=== PATIENT | female | born 1935 | race Two or more races ===

== ENCOUNTER 2023-07-02 20:04 | Inpatient (IN) | payer OTHER ==
[~2023-07-02] VITALS: Ht 167.6 cm; Wt 54.4 kg
[2023-07-02] MEDS ORDERED: METHYLPREDNISOLO4 M1 PO (20:53)
[2023-07-02] MEDS ORDERED: GLIMEPIRIDE4 M1 PO (20:53)
[2023-07-02] MEDS ORDERED: METOPROLOL TAR100 MG PO (20:53)
[2023-07-02] MEDS ORDERED: CEPHALEXIN500 MG PO (20:53)
[2023-07-02] MEDS ORDERED: METHYLPREDNISOLONE SOD SUCC 125 MG VIAL IV ONE (22:15)
[2023-07-02] MEDS ORDERED: IPRATROPIUM BROMIDE 0.5 MG/2.5 ML AMPUL.NEB IH SCH (22:15)
[2023-07-02] MEDS ORDERED: LEVALBUTEROL HCL 1.25 MG/3 ML SOLUTION IH SCH (22:15)
[2023-07-02 22:58] LABS: ABG PH 7.432 (7.35-7.45); ABG PO2 70.5 mmHg (80-100); ABG pCO2 45.3 mmHg (35-45); BASE EXCESS 4.5 mmol/l; BICARBONATE 29.5 mmol/l (23-25); SaO2 94.7 %; Tco2 30.9 mmol/l; allen test SATISFACTORY; o2 21 %; puncture site RADIAL RIGHT
[2023-07-02 23:07] LABS: HEMATOCRIT 36.3 % (36.0-45.00); HEMOGLOBIN 12.2 g/dL (12.0-15.00); MEAN CELL VOLUME 92.1 fL (80.00-100.00); MEAN CORPUSCULAR HGB CONC 33.6 g/dl (32.0-36.0); PLATELET COUNT 226 K/uL (150-450); RED BLOOD COUNT 3.94 M/uL (4.00-6.00); RED CELL DISTRIBUTION WIDTH 15.1 % (11.5-14.5)
[2023-07-02 23:20] LABS: INR 1.09; PARTIAL THROMBOPLASTIN TIME 22.9 SECONDS (22.0-34.0); PROTHROMBIN TIME 11.4 SECONDS (9.0-11.5)
[2023-07-02 23:24] LABS: URINE APPEARANCE Clear; URINE BACTERIA 12.5 uL (0.0-1933); URINE BILIRRUBIN Negative (NEGATIVE); URINE BLOOD Negative; URINE COLOR Yellow; URINE LEUKOCYTE Negative; URINE NITRATE Negative; URINE RBC 6.8 uL (0.0-20.8); URINE WBC 7.8 uL (0.0-23.2)
[2023-07-02 23:26] LABS: ALBUMIN 3.4 gm/dL (3.4-5.0); BILIRUBIN TOTAL 0.56 mg/dL (0.3-1.2); CALCIUM 10.1 mg/dL (8.5-10.1); CREATININE SERUM 0.91 mg/dL (0.55-1.02); GFR 58.61; GLOBULINA 3.1 G/DL (2.4-3.5); POTASSIUM 4.12 mEq/L (3.5-5.1); TOTAL PROTEIN 6.5 gm/dL (6.4-8.2)
[2023-07-02 23:43] LABS: URINE GLUCOSE >=1000 MG/DL (NEGATIVE); URINE PROTEIN 100 (NEGATIVE)
[2023-07-02 23:45] LABS: URINE CRYSTALS FEW /HPF
[2023-07-03] MEDS ORDERED: ALBUTEROL SULFATE 3 ML/2.5 MG AMPUL.NEB IH SCH (05:00)
[2023-07-03] MEDS ORDERED: IPRATROPIUM BROMIDE 0.5 MG/2.5 ML AMPUL.NEB IH SCH (05:00)
[2023-07-03] MEDS ORDERED: CLONIDINE HCL 0.1 MG TABLET PO STA (07:37)
[2023-07-03] MEDS ORDERED: FAMOTIDINE/PF 20 MG in 0.9 % SODIUM CHLORIDE 8 ML IV PUSH SCH (17:53)
[2023-07-03] MEDS ORDERED: LEVALBUTEROL HCL 1.25 MG/3 ML SOLUTION IH SCH (17:57)
[2023-07-03] MEDS ORDERED: INSULIN LISPRO 1,000 UNIT/10 ML UNITS SUBCUTANEO PRN (18:00)
[2023-07-03] MEDS ORDERED: ACETAMINOPHEN 500 MG GEL..CAP PO PRN (18:00)
[2023-07-03] MEDS ORDERED: 0.9 % SODIUM CHLORIDE 1,000 ML IV SCH (18:00)
[2023-07-03] MEDS ORDERED: GUAIFENESIN/DEXTROMETHORPHAN 100 MG/5 ML ML PO SCH (18:00)
[2023-07-03] MEDS ORDERED: PIPERACILLIN/TAZOBACTAM SODIUM 3.375 GM in DEXTROSE 5 % IN WATER 100 ML IV SCH (18:00)
[2023-07-03] MEDS ORDERED: ONDANSETRON HCL 4 MG in 0.9 % SODIUM CHLORIDE 50 ML IV PRN (18:00)
[2023-07-03] MEDS ORDERED: DEXTROSE 50 % IN WATER 0.5 G/ML DISP.SYRIN IV PRN (18:00)
[2023-07-03] MEDS ORDERED: DEXAMETHASONE SODIUM PHOSPHATE 4 MG/ML VIAL IV SCH (18:04)
[2023-07-03 21:02] LABS: FERRITIN 91.2 NG/ML (8-252)
[2023-07-03 21:27] LABS: C-REACTIVE PROTEIN 1.4 MG/DL (0.00-0.29)
[2023-07-04] MEDS ORDERED: LOSARTAN POTASSIUM 25 MG TABLET PO SCH (09:00)
[2023-07-04] MEDS ORDERED: METOPROLOL SUCCINATE 100 MG TAB.SR.24H PO SCH (09:00)
[2023-07-04] MEDS ORDERED: ASCORBIC ACID 500 MG TABLET PO SCH (09:00)
[2023-07-04] MEDS ORDERED: ENOXAPARIN SODIUM 40 MG/0.4 ML SYRINGE SUBCUTANEO SCH (09:00)
[2023-07-04] MEDS ORDERED: ZINC SULFATE 220 MG CAPSULE PO SCH (09:00)
[2023-07-04] MEDS ORDERED: PANTOPRAZOLE SODIUM 40 MG/VIAL VIAL IV PUSH SCH (11:53)
[2023-07-04] MEDS ORDERED: BUDESONIDE 0.5 MG/2 ML AMPUL.NEB IH SCH (11:53)
[2023-07-04] MEDS ORDERED: ATORVASTATIN CALCIUM 40 MG TABLET PO SCH (11:55)
[2023-07-04] MEDS ORDERED: ASPIRIN 81 MG TAB.CHEW PO SCH (11:57)
[2023-07-04] MEDS ORDERED: CLOPIDOGREL BISULFATE 75 MG TABLET PO SCH (11:57)
[2023-07-04] MEDS ORDERED: IPRATROPIUM BROMIDE 0.5 MG/2.5 ML AMPUL.NEB IH SCH (12:00)
[2023-07-04] MEDS ORDERED: INSULIN NPH HUMAN ISOPHANE 1,000 UNITS/10 ML UNITS SUBCUTANEO STA (12:27)
[2023-07-04] MEDS ORDERED: INSULIN LISPRO 1,000 UNIT/10 ML UNITS SUBCUTANEO PRN (12:30)
[2023-07-04] MEDS ORDERED: CEFEPIME HCL 1,000 MG VIAL IV SCH (13:00)
[2023-07-04] MEDS ORDERED: METHYLPREDNISOLONE SOD SUCC 40 MG VIAL IV SCH (13:00)
[2023-07-04] MEDS ORDERED: VANCOMYCIN HCL 1,000 MG VIAL IV SCH (17:00)
[2023-07-04] MEDS ORDERED: LACTOBACILLUS ACIDOPHILUS 1 CAP CAP PO SCH (17:00)
[2023-07-04] MEDS ORDERED: DOXAZOSIN MESYLATE 4 MG TABLET PO SCH (17:00)
[2023-07-04] MEDS ORDERED: CEFEPIME HCL 2,000 MG VIAL IV SCH (21:00)
[2023-07-04] MEDS ORDERED: INSULIN NPH HUMAN ISOPHANE 1,000 UNITS/10 ML UNITS SUBCUTANEO SCH (21:00)
[2023-07-05 07:21] LABS: ALBUMIN 2.7 gm/dL (3.4-5.0); BILIRUBIN TOTAL 0.67 mg/dL (0.3-1.2); CALCIUM 9.1 mg/dL (8.5-10.1); CREATININE SERUM 0.86 mg/dL (0.55-1.02); FERRITIN 85.8 NG/ML (8-252); GFR 62.56; GLOBULINA 3.1 G/DL (2.4-3.5); HEMATOCRIT 32.6 % (36.0-45.00); MEAN CELL VOLUME 91.8 fL (80.00-100.00); MEAN CORPUSCULAR HGB CONC 33.7 g/dl (32.0-36.0); PLATELET COUNT 181 K/uL (150-450); POTASSIUM 4.12 mEq/L (3.5-5.1); RED BLOOD COUNT 3.55 M/uL (4.00-6.00); RED CELL DISTRIBUTION WIDTH 15.4 % (11.5-14.5); TOTAL PROTEIN 5.8 gm/dL (6.4-8.2)
[2023-07-05 08:59] LABS: MYCOPLASMA PNEUMONIAE IGM NON REACTIVE (NO REACTIVE)
[2023-07-05] MEDS ORDERED: METOPROLOL SUCCINATE 50 MG TAB.SR.24H PO SCH (09:00)
[2023-07-05] MEDS ORDERED: LOSARTAN POTASSIUM 50 MG TABLET PO SCH (09:00)
[2023-07-05] MEDS ORDERED: MULTIVIT INFUSN,ADULT 4,VIT K 10 ML VIAL IV STA (10:37)
[2023-07-05] MEDS ORDERED: DEXTROSE 5 %-0.45 % SOD CHLORD 1,000 ML IV SCH (10:45)
[2023-07-05 11:44] LABS: PH,URINE 6.5 (5.0-8.0); URINE APPEARANCE Clear; URINE BILIRRUBIN Negative (NEGATIVE); URINE BLOOD Moderate; URINE COLOR Yellow; URINE LEUKOCYTE Negative; URINE NITRATE Negative; URINE UROBILINOGEN 0.2 E.U./dl
[2023-07-05 11:48] LABS: URINE BACTERIA 7.5 uL (0.0-1933); URINE EPITHELIAL CELLS 6.3 uL (0.0-38.8); URINE WBC 10.9 uL (0.0-23.2)
[2023-07-05 12:02] LABS: URINE GLUCOSE >=1000 MG/DL (NEGATIVE); URINE PROTEIN 100 (NEGATIVE)
[2023-07-05] MEDS ORDERED: SODIUM CHLORIDE 0.45 % 1,000 ML IV SCH (12:45)
[2023-07-05] MEDS ORDERED: INSULIN NPH HUMAN ISOPHANE 1,000 UNITS/10 ML UNITS SUBCUTANEO SCH (21:00)
[2023-07-06] MEDS ORDERED: MULTIVIT INFUSN,ADULT 4,VIT K 10 ML VIAL IV SCH (09:00)
[2023-07-06] MEDS ORDERED: REMDESIVIR 100 MG VIAL IV ONE (11:30)
[2023-07-07] MEDS ORDERED: REMDESIVIR 100 MG VIAL IV SCH (09:00)
[2023-07-07 10:36] LABS: HEMOGLOBIN 11.7 g/dL (12.0-15.00); MEAN CELL VOLUME 91.6 fL (80.00-100.00); MEAN CORPUSCULAR HEMOGLOBIN 30.7 pg (27.00-32.0); MEAN CORPUSCULAR HGB CONC 33.5 g/dl (32.0-36.0); PLATELET COUNT 196 K/uL (150-450); RED BLOOD COUNT 3.82 M/uL (4.00-6.00); RED CELL DISTRIBUTION WIDTH 15.2 % (11.5-14.5)
[2023-07-07 11:00] LABS: BILIRUBIN TOTAL 0.74 mg/dL (0.3-1.2); CALCIUM 8.9 mg/dL (8.5-10.1); CREATININE SERUM 1.08 mg/dL (0.55-1.02); FERRITIN 126.6 NG/ML (8-252); GFR 48.1; GLOBULINA 3.1 G/DL (2.4-3.5); MAGNESIUM 1.8 mg/dL (1.8-2.4); PHOSPHOROUS 2.2 mg/dL (2.5-4.9); POTASSIUM 3.73 mEq/L (3.5-5.1); TOTAL PROTEIN 6.1 gm/dL (6.4-8.2)
[2023-07-07 11:57] LABS: C-REACTIVE PROTEIN 0.6 MG/DL (0.00-0.29)
[2023-07-07] MEDS ORDERED: 0.9 % SODIUM CHLORIDE 1,000 ML IV SCH (15:30)
[2023-07-07 19:07] LABS: FERRITIN 129.7 NG/ML (8-252)
[2023-07-07] MEDS ORDERED: METHYLPREDNISOLONE SOD SUCC 40 MG VIAL IV SCH (21:00)
[2023-07-08] MEDS ORDERED: POLYETHYLENE GLYCOL 3350 17 GM BLIST.PACK PO STA (13:50)
[2023-07-08] MEDS ORDERED: FLUCONAZOLE IN NACL,ISO-OSM 100 ML IV SCH (14:38)
[2023-07-08] MEDS ORDERED: SODIUM CHLORIDE 0.45 % 1,000 ML IV SCH (14:45)
[2023-07-08] MEDS ORDERED: IPRATROPIUM BROMIDE 0.5 MG/2.5 ML AMPUL.NEB IH SCH (17:00)
[2023-07-08] MEDS ORDERED: POLYETHYLENE GLYCOL 3350 17 GM BLIST.PACK PO SCH (17:00)
[2023-07-08] MEDS ORDERED: INSULIN NPH HUMAN ISOPHANE 1,000 UNITS/10 ML UNITS SUBCUTANEO SCH (21:00)
[2023-07-09] MEDS ORDERED: LOSARTAN POTASSIUM 50 MG TABLET PO SCH (09:00)
[2023-07-09 12:46] LABS: C-REACTIVE PROTEIN 0.42 MG/DL (0.00-0.29); FERRITIN 136.8 NG/ML (8-252)
[2023-07-09 18:57] LABS: HEMATOCRIT 32.6 % (36.0-45.00); HEMOGLOBIN 11.1 g/dL (12.0-15.00); MEAN CELL VOLUME 90.3 fL (80.00-100.00); MEAN CORPUSCULAR HEMOGLOBIN 30.7 pg (27.00-32.0); MEAN CORPUSCULAR HGB CONC 33.9 g/dl (32.0-36.0); PLATELET COUNT 150 K/uL (150-450); RED BLOOD COUNT 3.61 M/uL (4.00-6.00); RED CELL DISTRIBUTION WIDTH 15.3 % (11.5-14.5)
[2023-07-09 19:26] LABS: ALBUMIN 2.9 gm/dL (3.4-5.0); BILIRUBIN TOTAL 1.01 mg/dL (0.3-1.2); CREATININE SERUM 0.77 mg/dL (0.55-1.02); GFR 71.08; GLOBULINA 2.9 G/DL (2.4-3.5); POTASSIUM 3.76 mEq/L (3.5-5.1); TOTAL PROTEIN 5.8 gm/dL (6.4-8.2)
[2023-07-09] MEDS ORDERED: INSULIN LISPRO 1,000 UNIT/10 ML UNITS SUBCUTANEO ONE (21:00)
[2023-07-10] MEDS ORDERED: METOPROLOL SUCCINATE 100 MG TAB.SR.24H PO SCH (09:00)
[2023-07-10 09:52] LABS: ABG PO2 161.7 mmHg (80-100); BASE EXCESS 3.8 mmol/l; BICARBONATE 27.8 mmol/l (23-25); SaO2 99.5 %
[2023-07-10 09:53] LABS: allen test SATISFACTORY; o2 32 %; puncture site RADIAL RIGHT
[2023-07-10] MEDS ORDERED: KETOROLAC TROMETHAMINE 30 MG VIAL ONE (15:33)
[2023-07-11 08:27] LABS: FERRITIN 185.6 NG/ML (8-252)
[2023-07-11 08:28] LABS: C-REACTIVE PROTEIN 1.97 MG/DL (0.00-0.29)
[2023-07-11] MEDS ORDERED: DEXAMETHASONE 4 MG TABLET PO ONE (11:45)
[2023-07-11] MEDS ORDERED: PHENOL 177 ML BOTTLE MM SCH (12:17)
[2023-07-12] MEDS ORDERED: XOPENEX CO1.25 MG/0. IH (12:18)
[2023-07-12] MEDS ORDERED: CLOPIDOGREL BIS75 MG PO (12:18)
[2023-07-12] MEDS ORDERED: IPRATROPIU0.2 MG/1 M IH (12:18)
[2023-07-12] MEDS ORDERED: TOPROL XL100 M1 PO (12:19)
[2023-07-12] MEDS ORDERED: COZAAR50 MG PO (12:19)
[2023-07-12] MEDS ORDERED: DOXAZOSIN MESYLA4 MG PO (12:19)
[2023-07-12] MEDS ORDERED: LIPITOR40 M1 PO (12:19)
[2023-07-12] MEDS ORDERED: CHLORASEPTIC177 M2 MM (12:20)
[2023-07-12] MEDS ORDERED: Tussi-Organidin Dm-S PO (12:20)
[2023-07-12] MEDS ORDERED: BUDESONIDE0.5 MG/2 M IH (12:20)
[2023-07-12] MEDS ORDERED: ADULT ASPIRIN81 MG PO (12:20)
[2023-07-12] MEDS ORDERED: INTESTINEX680 M1 PO (12:21)
[2023-07-12] MEDS ORDERED: GLIMEPIRIDE4 M1 PO (12:21)
[2023-07-12] MEDS ORDERED: METHYLPREDNISOLO4 M1 PO (12:21)
[2023-07-12] MEDS ORDERED: INSULIN REGULAR, HUMAN 1,000 UNIT/10 ML UNITS IV STA (14:45)
[2023-07-12] MEDS ORDERED: INSULIN REGULAR, HUMAN 1,000 UNIT/10 ML UNITS ONE (14:47)
== END 2023-07-12 16:18 | disposition home or self-care (01) | DRG 177 ==
LOC: ER 20:04 → SEC-K 07-03 18:16 → SURH 07-03 18:16 → SEC-K 07-06 01:51 → SURH 07-07 20:37
PROVIDERS: General Practice; Internal Medicine Infectious Disease; ADMIT Internal Medicine; ATTEND Internal Medicine
PROC: BW2FYZZ Computerized Tomography (CT Scan) of Neck using Other Contrast (ICD-10-PCS; principal; 2023-07-06)
PROC: 4A12X4Z Monitoring of Cardiac Electrical Activity, External Approach (ICD-10-PCS; 2023-07-07)
PROC: XW033E5 Introduction of Remdesivir Anti-infective into Peripheral Vein, Percutaneous Approach, New Technology Group 5 (ICD-10-PCS; 2023-07-07)
PROC: BQ2RZZZ Computerized Tomography (CT Scan) of Right Lower Extremity (ICD-10-PCS; 2023-07-11)
PROC: BG44ZZZ Ultrasonography of Thyroid Gland (ICD-10-PCS; 2023-07-11)
DX: U07.1 COVID-19 (principal); J69.0 Pneumonitis due to inhalation of food and vomit; J45.51 Severe persistent asthma with (acute) exacerbation; J38.7 Other diseases of larynx; R13.10 Dysphagia, unspecified; J98.8 Other specified respiratory disorders; I10 Essential (primary) hypertension; E11.65 Type 2 diabetes mellitus with hyperglycemia; Z79.4 Long term (current) use of insulin